=== PATIENT | male | born 1970 | race Caucasian/White ===

== ENCOUNTER → 2020-05-11 00:23 | Emergency (ER) | payer MEDICAID, OTHER ==
[~2020-05-11 00:23] MED LIST: GLIP2.5T2; GLU500
--- NOTE | 2020-05-11 00:23 | NUR ---
PT CALLEDE FOR TRIAGE, PT ELOPED.
== END | disposition left against medical advice (07) ==
LOC: MED 00:23
DX: M79.606 Pain in leg, unspecified (principal); Z53.21 Procedure and treatment not carried out due to patient leaving prior to being seen by health care provider

== ENCOUNTER 2021-01-23 18:59 | Emergency (ER) | payer MEDICARE, MEDICAID ==
[~2021-01-23] VITALS: Ht 180.3 cm; Wt 90.7 kg
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
[2021-01-23 19:15] VITALS: BP 155/81
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
--- NOTE | 2021-01-23 19:46 | NUR ---
CALLED [facility] AND REPORTED INCIDENT. PATIENT DOESNT WANT TO FILE A COMPLAINT.
--- NOTE | 2021-01-23 19:48 | NUR ---
ERMD AT BEDSIDE ASSESSING PATIENT
[2021-01-23 20:21] LABS: BASOPHILS # (AUTO) 0.1 K/uL (0.00-0.22); BASOPHILS % (AUTO) 1.1 % (0.0-2.0); EOSINOPHILS # (AUTO) 0.3 K/uL (0-0.4); EOSINOPHILS % (AUTO) 4.4 % (0.0-4.0); HEMATOCRIT 42.5 % (36-52); HEMOGLOBIN 14.3 g/dL (12.0-18.0); LYMPHOCYTES # (AUTO) 2.2 K/uL (2.0-11.5); LYMPHOCYTES % (AUTO) 31.7 % (20.5-51.1); MEAN CORPUSCULAR HEMOGLOBIN 30 pg (27-31); MEAN CORPUSCULAR HGB CONC 34 g/dL (33-37); MEAN CORPUSCULAR VOLUME 87.9 fL (80-94); MONOCYTES # (AUTO) 0.7 K/uL (0.8-1.0); MONOCYTES % (AUTO) 10.2 % (1.7-9.3); NEUTROPHILS # (AUTO) 3.7 K/uL (1.8-7.7); NEUTROPHILS % (AUTO) 52.6 % (42.2-75.2); PLATELET COUNT (AUTO) 307 K/uL (140-450); RED BLOOD CELL COUNT(AUTO) 4.83 MIL/uL (4.20-6.10); RED CELL DISTRIBUTION WIDTH 14.7 % (11.6-13.7)
[2021-01-23 20:29] LABS: ANION GAP 9.5 (8-16); CARBON DIOXIDE 30.4 mmol/L (21-32); CREATININE 1.1 mg/dL (0.6-1.3); POTASSIUM 3.9 mmol/L (3.5-5.1)
[2021-01-23 20:41] LABS: PROTHROMBIN TIME 9.6 secs (10.8-13.4)
[2021-01-23] MEDS ORDERED: SODI44SP20 NS (22:19)
[2021-01-23 22:26] VITALS: BP 135/81
--- NOTE | 2021-01-23 22:26 | NUR ---
Patient discharged with v/s stable. Written and verbal after care instructions given and explained. Patient alert, oriented and verbalized understanding of instructions. Ambulatory with steady gait. All questions addressed prior to discharge. ID band removed. Patient advised to follow up with PMD. Rx of SODIUM CHLORIDE NASAL SPRAY given. Patient educated on indication of medication including possible reaction and side effects. Opportunity to ask questions provided and answered.
[2021-01-23] MEDS ORDERED: METH750T5 PO (22:27)
[2021-01-23] MEDS ORDERED: IBUP-2213 PO (22:27)
== END 2021-01-23 22:26 | disposition home or self-care (01) ==
LOC: MED 18:59
DX: S02.2XXA Fracture of nasal bones, initial encounter for closed fracture (principal); S09.90XA Unspecified injury of head, initial encounter; E11.9 Type 2 diabetes mellitus without complications; I10 Essential (primary) hypertension; Y04.8XXA Assault by other bodily force, initial encounter; Y93.89 Activity, other specified; Y92.89 Other specified places as the place of occurrence of the external cause; Y99.8 Other external cause status
CPT/HCPCS: 36415; 70450; 70486; 71045; 72125; 80048; 85025; 85610; 85730; 86886; 86900; 86901; 99285

== ENCOUNTER 2023-09-27 23:43 | Emergency (ER) | payer OTHER, MEDICAID ==
[~2023-09-27 23:43] MED LIST changes: +APIX5TAB PO; +ERTA1VIA2 IV; +GABA300C PO; -GLIP2.5T2; -GLU500; +HYDR-4490 PO; +INSU-1163 SQ; +LISI5TAB18 PO; +METF-352 PO
== END 2023-09-28 | disposition left against medical advice (07) ==
LOC: MED 23:43
DX: Z53.21 Procedure and treatment not carried out due to patient leaving prior to being seen by health care provider (principal)

== ENCOUNTER 2023-09-28 17:02 | Inpatient (IN) | payer OTHER, MEDICAID ==
[~2023-09-28] VITALS: Ht 182.9 cm; Wt 93.4 kg
[2023-09-28 17:15] VITALS: BP 156/113; PULSE 120; RESP 20; TEMP 101.7; O2SAT 98
[2023-09-28] MEDS ORDERED: NACL 0.9% 2,500 ML IV ONE (17:50)
[2023-09-28] MEDS ORDERED: ACETAMINOPHEN EXTRA STRENGTH 500 MG TAB PO ONE (18:05)
[2023-09-28] MEDS ORDERED: MORPHINE SULFATE 10 MG/ML VIAL IVP STA (18:50)
[2023-09-28 18:53] LABS: BASOPHILS # (AUTO) 0.1 K/uL (0.00-0.22); BASOPHILS % (AUTO) 0.6 % (0.0-2.0); EOSINOPHILS # (AUTO) 0.2 K/uL (0-0.4); EOSINOPHILS % (AUTO) 2.1 % (0.0-4.0); HEMATOCRIT 32.4 % (36-52); HEMOGLOBIN 10.8 g/dL (12.0-18.0); LYMPHOCYTES # (AUTO) 1.7 K/uL (2.0-11.5); MEAN CORPUSCULAR HEMOGLOBIN 24 pg (27-31); MEAN CORPUSCULAR HGB CONC 33 g/dL (33-37); MEAN CORPUSCULAR VOLUME 73.6 fL (80-94); MONOCYTES % (AUTO) 8.2 % (1.7-9.3); NEUTROPHILS % (AUTO) 75.1 % (42.2-75.2); PLATELET COUNT (AUTO) 604 K/uL (140-450); RED CELL DISTRIBUTION WIDTH 16.7 % (11.6-13.7)
[2023-09-28] MEDS ORDERED: PIPERACILLIN/TAZOBACTAM 3.375 GM in DEXTROSE 5% 50 ML IV ONE (18:55)
[2023-09-28] MEDS ORDERED: VANCOMYCIN 1,000 MG in DEXTROSE 5% 250 ML IV ONE (18:55)
[2023-09-28 19:05] LABS: ALBUMIN 2.2 g/dL (3.4-5.0); ANION GAP 14.1 (8-16); CALCIUM 9.7 mg/dL (8.5-10.1); CARBON DIOXIDE 30.1 mmol/L (21-32); CREATININE 1.1 mg/dL (0.6-1.3); POTASSIUM 4.2 mmol/L (3.5-5.1); TOTAL BILIRUBIN 0.5 mg/dL (0.0-1.0); TOTAL PROTEIN, SERUM 9.1 g/dL (6.4-8.2)
[2023-09-28 19:15] LABS: LACTIC ACID 2.8 mmol/L (0.4-2.0)
[2023-09-28] MEDS ORDERED: PIPERACILLIN/TAZOBACTAM 3.375 GM VIAL IV ONE (20:02)
[2023-09-28] MEDS ORDERED: MORPHINE SULFATE 10 MG/ML VIAL ONE (20:03)
[2023-09-28] MEDS ORDERED: VANCOMYCIN 1,000 MG VIAL ONE (21:41)
[2023-09-28] MEDS ORDERED: DEXTROSE 50% 50 ML SYR IVP PRN (22:50)
[2023-09-28] MEDS ORDERED: HYDROcodone/APAP 5/325 MG 1 TAB TAB PO PRN (22:50)
[2023-09-28] MEDS ORDERED: ONDANSETRON 4 MG/2 ML VIAL IVP PRN (22:50)
[2023-09-28] MEDS ORDERED: ACETAMINOPHEN 325 MG TAB PO PRN (22:50)
[2023-09-29] MEDS: PIPERACILLIN/TAZOBACTAM 3.375 GM in DEXTROSE 5% 50 ML IV SCH ×3 (05:35→21:11)
[2023-09-29] MEDS ORDERED: PIPERACILLIN/TAZOBACTAM 3.375 GM VIAL IV ONE ×3 (05:35→21:04)
[2023-09-29] MEDS: NACL 0.9% 1,000 ML IV SCH ×2 (05:42→18:50)
[2023-09-29 06:22] LABS: BASOPHILS # (AUTO) 0.1 K/uL (0.00-0.22); BASOPHILS % (AUTO) 0.7 % (0.0-2.0); EOSINOPHILS # (AUTO) 0.3 K/uL (0-0.4); EOSINOPHILS % (AUTO) 4.3 % (0.0-4.0); HEMATOCRIT 29.4 % (36-52); HEMOGLOBIN 9.8 g/dL (12.0-18.0); LYMPHOCYTES # (AUTO) 1.2 K/uL (2.0-11.5); MEAN CORPUSCULAR HEMOGLOBIN 25 pg (27-31); MEAN CORPUSCULAR HGB CONC 34 g/dL (33-37); MEAN CORPUSCULAR VOLUME 73.3 fL (80-94); MONOCYTES # (AUTO) 0.7 K/uL (0.8-1.0); MONOCYTES % (AUTO) 8.6 % (1.7-9.3); NEUTROPHILS # (AUTO) 5.4 K/uL (1.8-7.7); NEUTROPHILS % (AUTO) 70.4 % (42.2-75.2); PLATELET COUNT (AUTO) 507 K/uL (140-450); RED BLOOD CELL COUNT(AUTO) 4.01 MIL/uL (4.20-6.10); RED CELL DISTRIBUTION WIDTH 16.7 % (11.6-13.7); WHITE BLOOD COUNT (AUTO) 7.7 K/uL (4.8-10.8)
[2023-09-29 06:37] LABS: ANION GAP 10.5 (8-16); CALCIUM 8.7 mg/dL (8.5-10.1); CARBON DIOXIDE 29.9 mmol/L (21-32); CREATININE 0.9 mg/dL (0.6-1.3); POTASSIUM 3.4 mmol/L (3.5-5.1)
[2023-09-29 07:33] VITALS: O2SAT 99
[2023-09-29 07:44] LABS: APPEARANCE,URINE CLEAR (CLEAR); BILIRUBIN,URINE NEGATIVE (NEGATIVE); BLOOD, URINE NEGATIVE (NEGATIVE); COLOR,URINE YELLOW (YELLOW); LEUKOCYTE ESTERASE ,URINE NEGATIVE (NEGATIVE); NITRITE, URINE NEGATIVE (NEGATIVE); PROTEIN,URINE 1+ (NEGATIVE); UGLUCOSE 3+ (NEGATIVE); UROBILINOGEN,URINE 0.2 EU/dL (0.2 - 1)
[2023-09-29] MEDS: BLOOD GLUCOSE MONITORING 1 DEV DEV FS SCH ×4 (07:52→20:51)
[2023-09-29] MEDS: INSULIN LISPRO SLIDING SCALE 100 UNITS/ML VIAL SUBQ PRN ×3 (08:02→20:54)
[2023-09-29 08:17] LABS: BACTERIA,URINE OCCASSIONAL /HPF (None Seen); RBC,URINE 0-5 /HPF (0-5); SQUAMOUS EPITHELIAL CELL,UR 0-3 (FEW) /LPF (0-3 (FEW)); WBC,URINE 0-5 /HPF (0-5)
[2023-09-29 08:27] LABS: BARBITURATE, URINE NEGATIVE ng/ml (NEG <=200); CANNABINOID, URINE POSITIVE ng/mL (NEG <=50)
[2023-09-29 08:28] LABS: AMPHETAMINE, URINE POSITIVE ng/ml (NEG <=1000); BENZODIAZEPINE, URINE NEGATIVE ng/mL (NEG <=200); COCAINE, URINE NEGATIVE ng/mL (NEG <=300); OPIATE, URINE POSITIVE ng/mL (NEG <=2000); PHENCYCLIDINE SCREEN,URINE POSITIVE ng/mL (NEG <=25)
[2023-09-29] MEDS ORDERED: POTASSIUM CHLORIDE 10 MEQ TABER PO SCH (08:30)
[2023-09-29] MEDS: lisinopriL 5 MG TAB PO SCH (09:22)
[2023-09-29] MEDS: GABAPENTIN 300 MG CAP PO SCH ×3 (09:22→18:01)
[2023-09-29] MEDS: APIXABAN 2.5 MG TAB PO SCH ×2 (09:23→21:01)
[2023-09-29 09:33] VITALS: O2SAT 99
[2023-09-29] MEDS: MORPHINE SULFATE 2 MG/ML SYR IVP PRN (13:39)
[2023-09-29 14:31] VITALS: O2SAT 99
[2023-09-29 15:29] VITALS: RESP 18; O2SAT 99
[2023-09-29 16:00] VITALS: BP 106/69; PULSE 81; RESP 20; TEMP 98.6; O2SAT 99
[2023-09-29 20:00] VITALS: BP 103/68; PULSE 84; RESP 18; TEMP 97.5; O2SAT 97
[2023-09-30 04:00] VITALS: BP 110/65; PULSE 81; RESP 18; TEMP 97.6; O2SAT 98
[2023-09-30] MEDS ORDERED: PIPERACILLIN/TAZOBACTAM 3.375 GM VIAL IV ONE (04:27)
[2023-09-30] MEDS: PIPERACILLIN/TAZOBACTAM 3.375 GM in DEXTROSE 5% 50 ML IV SCH ×3 (04:32→21:15)
[2023-09-30] MEDS: BLOOD GLUCOSE MONITORING 1 DEV DEV FS SCH ×4 (06:41→21:40)
[2023-09-30] MEDS: INSULIN LISPRO SLIDING SCALE 100 UNITS/ML VIAL SUBQ PRN ×4 (06:41→21:44)
[2023-09-30 07:22] LABS: BASOPHILS % (AUTO) 0.5 % (0.0-2.0); EOSINOPHILS # (AUTO) 0.3 K/uL (0-0.4); EOSINOPHILS % (AUTO) 5.1 % (0.0-4.0); HEMATOCRIT 32.5 % (36-52); HEMOGLOBIN 10.8 g/dL (12.0-18.0); LYMPHOCYTES # (AUTO) 1.8 K/uL (2.0-11.5); LYMPHOCYTES % (AUTO) 25.5 % (20.5-51.1); MEAN CORPUSCULAR HEMOGLOBIN 24 pg (27-31); MEAN CORPUSCULAR HGB CONC 33 g/dL (33-37); MEAN CORPUSCULAR VOLUME 73.8 fL (80-94); MONOCYTES # (AUTO) 0.6 K/uL (0.8-1.0); MONOCYTES % (AUTO) 8.7 % (1.7-9.3); NEUTROPHILS # (AUTO) 4.1 K/uL (1.8-7.7); NEUTROPHILS % (AUTO) 60.2 % (42.2-75.2); PLATELET COUNT (AUTO) 637 K/uL (140-450); RED BLOOD CELL COUNT(AUTO) 4.41 MIL/uL (4.20-6.10); RED CELL DISTRIBUTION WIDTH 17.1 % (11.6-13.7); WHITE BLOOD COUNT (AUTO) 6.9 K/uL (4.8-10.8)
[2023-09-30 07:33] LABS: ANION GAP 10.7 (8-16); CALCIUM 9.1 mg/dL (8.5-10.1); CARBON DIOXIDE 30.1 mmol/L (21-32); CREATININE 0.9 mg/dL (0.6-1.3); POTASSIUM 3.8 mmol/L (3.5-5.1)
[2023-09-30 08:00] VITALS: BP 128/77; PULSE 80; RESP 18; TEMP 97.5; O2SAT 97; O2SAT 98
[2023-09-30] MEDS: APIXABAN 2.5 MG TAB PO SCH ×2 (09:00→21:36)
[2023-09-30] MEDS: lisinopriL 5 MG TAB PO SCH (10:03)
[2023-09-30] MEDS: GABAPENTIN 300 MG CAP PO SCH ×3 (10:03→17:52)
[2023-09-30 12:00] VITALS: BP 126/79; PULSE 82; RESP 18; TEMP 97.6; O2SAT 97
[2023-09-30] MEDS: NACL 0.9% 1,000 ML IV SCH (14:50)
[2023-09-30 18:00] VITALS: BP 104/68; PULSE 97; RESP 21; TEMP 98.9; O2SAT 99
[2023-09-30] MEDS: MORPHINE SULFATE 2 MG/ML SYR IVP PRN (18:24)
[2023-09-30 20:00] VITALS: BP 104/60; PULSE 75; PULSE 87; RESP 18; RESP 20; TEMP 97.4; O2SAT 99
[2023-10-01 04:00] VITALS: BP 110/65; PULSE 89; RESP 20; TEMP 97.8; O2SAT 98
[2023-10-01] MEDS: PIPERACILLIN/TAZOBACTAM 3.375 GM in DEXTROSE 5% 50 ML IV SCH (05:20)
[2023-10-01 06:38] LABS: BASOPHILS # (AUTO) 0.1 K/uL (0.00-0.22); EOSINOPHILS # (AUTO) 0.4 K/uL (0-0.4); EOSINOPHILS % (AUTO) 3.5 % (0.0-4.0); HEMATOCRIT 33.3 % (36-52); HEMOGLOBIN 10.9 g/dL (12.0-18.0); LYMPHOCYTES # (AUTO) 1.9 K/uL (2.0-11.5); LYMPHOCYTES % (AUTO) 16.6 % (20.5-51.1); MEAN CORPUSCULAR HEMOGLOBIN 24 pg (27-31); MEAN CORPUSCULAR HGB CONC 33 g/dL (33-37); MEAN CORPUSCULAR VOLUME 73.8 fL (80-94); MONOCYTES # (AUTO) 0.7 K/uL (0.8-1.0); MONOCYTES % (AUTO) 6.4 % (1.7-9.3); NEUTROPHILS # (AUTO) 8.3 K/uL (1.8-7.7); NEUTROPHILS % (AUTO) 72.5 % (42.2-75.2); PLATELET COUNT (AUTO) 685 K/uL (140-450); RED BLOOD CELL COUNT(AUTO) 4.51 MIL/uL (4.20-6.10); RED CELL DISTRIBUTION WIDTH 16.9 % (11.6-13.7); WHITE BLOOD COUNT (AUTO) 11.4 K/uL (4.8-10.8)
[2023-10-01] MEDS: INSULIN LISPRO SLIDING SCALE 100 UNITS/ML VIAL SUBQ PRN (06:42)
[2023-10-01] MEDS: BLOOD GLUCOSE MONITORING 1 DEV DEV FS SCH (06:42)
[2023-10-01 06:53] LABS: CALCIUM 8.7 mg/dL (8.5-10.1); CARBON DIOXIDE 30.2 mmol/L (21-32); CREATININE 0.9 mg/dL (0.6-1.3); POTASSIUM 4.2 mmol/L (3.5-5.1)
[2023-10-01 08:00] VITALS: PULSE 72; RESP 18; TEMP 98.8; O2SAT 95
[2023-10-01] MEDS: GABAPENTIN 300 MG CAP PO SCH (10:46)
[2023-10-01] MEDS: MORPHINE SULFATE 2 MG/ML SYR IVP PRN (10:46)
[2023-10-01] MEDS: APIXABAN 2.5 MG TAB PO SCH (10:48)
[2023-10-01] MEDS: lisinopriL 5 MG TAB PO SCH (10:49)
== END 2023-10-01 11:47 | disposition left against medical advice (07) | DRG 602 ==
LOC: MED 17:02 → MTU 22:47
PROVIDERS: ADMIT Family Medicine; ATTEND Family Medicine
DX: L03.115 Cellulitis of right lower limb (principal); E43 Unspecified severe protein-calorie malnutrition; M86.8X7 Other osteomyelitis, ankle and foot; L97.516 Non-pressure chronic ulcer of other part of right foot with bone involvement without evidence of necrosis; E11.69 Type 2 diabetes mellitus with other specified complication; E11.621 Type 2 diabetes mellitus with foot ulcer; Z53.21 Procedure and treatment not carried out due to patient leaving prior to being seen by health care provider; Z79.01 Long term (current) use of anticoagulants; Z79.4 Long term (current) use of insulin; Z79.899 Other long term (current) drug therapy; Z79.84 Long term (current) use of oral hypoglycemic drugs; Z68.27 Body mass index [BMI] 27.0-27.9, adult
CPT/HCPCS: 36415; 73590; 73630; 73702; 80048; 80053; 80305; 81001; 82948; 83605; 85025; 87040; 87070; 87075; 87081; 87186; 96365; 96368; 99285; J2270; J2405; J2543; J3370; J7060; Q9967

== ENCOUNTER 2024-03-20 03:31 | Inpatient (IN) | payer OTHER, MEDICAID ==
[~2024-03-20] VITALS: Ht 172.7 cm; Wt 90.7 kg
[2024-03-20] VITALS (8 sets, daily range): BP systolic 105–115; BP diastolic 58–69; PULSE 73–95; RESP 14–18; TEMP 97.3–97.8; O2SAT 95–99
[2024-03-20] MEDS ORDERED: VANCOMYCIN 1,000 MG VIAL ONE (04:51)
[2024-03-20] MEDS ORDERED: PIPERACILLIN/TAZOBACTAM 3.375 GM VIAL IV ONE (04:51)
[2024-03-20] MEDS: ACETAMINOPHEN EXTRA STRENGTH 500 MG TAB PO ONE (05:11)
[2024-03-20] MEDS: NACL 0.9% 1,000 ML IV SCH (05:16)
[2024-03-20] MEDS: KETOROLAC 30 MG/ML VIAL IVP ONE (05:19)
[2024-03-20] MEDS: PIPERACILLIN/TAZOBACTAM 3.375 GM in DEXTROSE 5% 50 ML IV ONE (05:22)
[2024-03-20 05:36] LABS: BASOPHILS # (AUTO) 0.1 K/uL (0.00-0.22); BASOPHILS % (AUTO) 1.3 % (0.0-2.0); EOSINOPHILS # (AUTO) 0.4 K/uL (0-0.4); EOSINOPHILS % (AUTO) 4.5 % (0.0-4.0); HEMATOCRIT 30.7 % (36-52); HEMOGLOBIN 10.1 g/dL (12.0-18.0); LYMPHOCYTES # (AUTO) 1.6 K/uL (2.0-11.5); LYMPHOCYTES % (AUTO) 20.6 % (20.5-51.1); MEAN CORPUSCULAR HEMOGLOBIN 24 pg (27-31); MEAN CORPUSCULAR HGB CONC 33 g/dL (33-37); MEAN CORPUSCULAR VOLUME 73.1 fL (80-94); MONOCYTES # (AUTO) 0.8 K/uL (0.8-1.0); MONOCYTES % (AUTO) 10.6 % (1.7-9.3); PLATELET COUNT (AUTO) 352 K/uL (140-450); RED CELL DISTRIBUTION WIDTH 19.6 % (11.6-13.7); WHITE BLOOD COUNT (AUTO) 7.9 K/uL (4.8-10.8)
[2024-03-20] MEDS: VANCOMYCIN 1,000 MG in DEXTROSE 5% 250 ML IV ONE (05:50)
[2024-03-20 06:02] LABS: INR 0.9 (0.8-1.2); PARTIAL THROMBOPLASTIN TIME 32.3 secs (22-35.6); PROTHROMBIN TIME 9.4 secs (10.8-13.4)
[2024-03-20] MEDS ORDERED: VANCOMYCIN PER PHARMACY MC PRN (06:05)
[2024-03-20] MEDS ORDERED: ACETAMINOPHEN 325 MG TAB PO PRN (06:05)
[2024-03-20 06:09] LABS: ALANINE AMINOTRANSFERASE 15 U/L (12-78); ALKALINE PHOSPHATASE 101 U/L (50-136); ASPARTATE AMINOTRANSFERASE 4 U/L (15-37); BILIRUBIN,DIRECT 0.1 mg/dL (0.0-0.3); TOTAL BILIRUBIN 0.4 mg/dL (0.0-1.0); TOTAL PROTEIN, SERUM 7.7 g/dL (6.4-8.2)
[2024-03-20 06:11] LABS: LACTIC ACID 2.1 mmol/L (0.4-2.0)
[2024-03-20] MEDS: ONDANSETRON 4 MG/2 ML VIAL IVP ONE (06:15)
[2024-03-20] MEDS: MORPHINE SULFATE 4 MG/ML SYR IVP ONE (06:16)
[2024-03-20 06:34] LABS: ANION GAP 14.9 (8-16); CALCIUM 8.3 mg/dL (8.5-10.1); CARBON DIOXIDE 25.4 mmol/L (21-32); POTASSIUM 4.3 mmol/L (3.5-5.1)
[2024-03-20] MEDS: CEFEPIME 2,000 MG in DEXTROSE 5% 100 ML IV SCH (09:27)
[2024-03-20] MEDS: ENOXAPARIN 40 MG/0.4 ML SYR SUBQ SCH (09:34)
[2024-03-20] MEDS ORDERED: DEXTROSE 50% 50 ML SYR IVP PRN (12:10)
[2024-03-20] MEDS: INSULIN LISPRO SLIDING SCALE 100 UNITS/ML VIAL SUBQ PRN (12:12)
[2024-03-20] MEDS: GABAPENTIN 300 MG CAP PO SCH (12:13)
[2024-03-20] MEDS: lisinopriL 5 MG TAB PO SCH (12:16)
[2024-03-20] MEDS: VANCOMYCIN 1.25GM PREMIX 250 ML IV SCH (15:18)
[2024-03-20] MEDS: MORPHINE SULFATE 2 MG/ML SYR IVP PRN (16:41)
[2024-03-20] MEDS: BLOOD GLUCOSE MONITORING 1 DEV DEV FS SCH (16:44)
[2024-03-20] MEDS: APIXABAN 2.5 MG TAB PO SCH (21:21)
[2024-03-20] MEDS: INSULIN LANTUS 100 UNITS/ML 10 ML VIAL SUBQ SCH (21:33)
[2024-03-21] MEDS: HYDROcodone/APAP 5/325 MG 1 TAB TAB PO PRN (01:03)
[2024-03-21 04:00] VITALS: BP 105/57; PULSE 75; RESP 18; TEMP 98.1; O2SAT 99
[2024-03-21 05:46] LABS: BASOPHILS # (AUTO) 0.1 K/uL (0.00-0.22); BASOPHILS % (AUTO) 1.9 % (0.0-2.0); EOSINOPHILS # (AUTO) 0.5 K/uL (0-0.4); EOSINOPHILS % (AUTO) 8.9 % (0.0-4.0); HEMOGLOBIN 9.6 g/dL (12.0-18.0); LYMPHOCYTES # (AUTO) 1.9 K/uL (2.0-11.5); LYMPHOCYTES % (AUTO) 34.5 % (20.5-51.1); MEAN CORPUSCULAR HEMOGLOBIN 24 pg (27-31); MEAN CORPUSCULAR HGB CONC 32 g/dL (33-37); MEAN CORPUSCULAR VOLUME 73.2 fL (80-94); MONOCYTES # (AUTO) 0.5 K/uL (0.8-1.0); MONOCYTES % (AUTO) 9.4 % (1.7-9.3); NEUTROPHILS # (AUTO) 2.4 K/uL (1.8-7.7); NEUTROPHILS % (AUTO) 45.3 % (42.2-75.2); PLATELET COUNT (AUTO) 309 K/uL (140-450); RED CELL DISTRIBUTION WIDTH 19.3 % (11.6-13.7); WHITE BLOOD COUNT (AUTO) 5.4 K/uL (4.8-10.8)
[2024-03-21 06:29] LABS: ALBUMIN 2.5 g/dL (3.4-5.0); ANION GAP 11.4 (8-16); CARBON DIOXIDE 26.2 mmol/L (21-32); CREATININE 0.8 mg/dL (0.6-1.3); MAGNESIUM 1.9 mg/dL (1.8-2.4); PHOSPHORUS 3.9 mg/dL (2.5-4.9); POTASSIUM 4.6 mmol/L (3.5-5.1); TOTAL BILIRUBIN 0.4 mg/dL (0.0-1.0); TOTAL PROTEIN, SERUM 6.8 g/dL (6.4-8.2)
[2024-03-21 08:00] VITALS: BP 113/59; PULSE 67; RESP 18; TEMP 97.5; O2SAT 99
[2024-03-21] MEDS: PANTOPRAZOLE 40 MG INJ VIAL IVP SCH (08:52)
[2024-03-21] MEDS ORDERED: GABAPENTIN 100 MG CAP PO SCH (09:00)
[2024-03-21] MEDS ORDERED: PANTOPRAZOLE 40 MG INJ VIAL IVP SCH (09:00)
[2024-03-21 12:00] VITALS: BP 113/59; PULSE 67; RESP 18; TEMP 97.5; O2SAT 99
== END 2024-03-21 16:10 | disposition home health service (06) | DRG 638 ==
LOC: MED 03:31 → MTU 06:10 → MMU 06:53
PROVIDERS: ADMIT Student in an Organized Health Care Education/Training Program; ATTEND Student in an Organized Health Care Education/Training Program
PROC: 02HV33Z Insertion of Infusion Device into Superior Vena Cava, Percutaneous Approach (ICD-10-PCS; principal; 2024-03-21)
PROC: B548ZZA Ultrasonography of Superior Vena Cava, Guidance (ICD-10-PCS; 2024-03-21)
DX: E11.69 Type 2 diabetes mellitus with other specified complication (principal); L03.115 Cellulitis of right lower limb; M86.8X7 Other osteomyelitis, ankle and foot; E11.621 Type 2 diabetes mellitus with foot ulcer; I10 Essential (primary) hypertension; E11.610 Type 2 diabetes mellitus with diabetic neuropathic arthropathy; Z79.899 Other long term (current) drug therapy
CPT/HCPCS: 36415; 71045; 73590; 73630; 80048; 80053; 80076; 82948; 83605; 83735; 84100; 84484; 85025; 85610; 85730; 87040; 87081; 93005; 96365; 96367; 96375; 99285; C9113; J0692; J1650; J1815; J1885; J2270; J2405; J2543; J3370; J3372; J7060; Q0092

== ENCOUNTER 2024-06-27 18:16 | Emergency (ER) | payer OTHER, MEDICAID ==
[~2024-06-27] VITALS: Ht 182.9 cm; Wt 89.8 kg
[2024-06-27 18:30] VITALS: BP 124/60; PULSE 86; RESP 18; TEMP 98; O2SAT 99
[2024-06-27 19:15] VITALS: BP 124/60; PULSE 86; RESP 18; TEMP 98; O2SAT 99
[2024-06-27] MEDS ORDERED: PIPERACILLIN/TAZOBACTAM 3.375 GM VIAL IV ONE (20:25)
[2024-06-27 20:39] LABS: BASOPHILS # (AUTO) 0.2 K/uL (0.00-0.22); BASOPHILS % (AUTO) 2.8 % (0.0-2.0); EOSINOPHILS # (AUTO) 0.4 K/uL (0-0.4); EOSINOPHILS % (AUTO) 5.6 % (0.0-4.0); HEMOGLOBIN 9.2 g/dL (12.0-18.0); LYMPHOCYTES # (AUTO) 1.9 K/uL (2.0-11.5); LYMPHOCYTES % (AUTO) 30.3 % (20.5-51.1); MEAN CORPUSCULAR HEMOGLOBIN 23 pg (27-31); MEAN CORPUSCULAR HGB CONC 32 g/dL (33-37); MEAN CORPUSCULAR VOLUME 72.8 fL (80-94); MONOCYTES # (AUTO) 0.4 K/uL (0.8-1.0); MONOCYTES % (AUTO) 5.9 % (1.7-9.3); NEUTROPHILS # (AUTO) 3.5 K/uL (1.8-7.7); NEUTROPHILS % (AUTO) 55.4 % (42.2-75.2); PLATELET COUNT (AUTO) 546 K/uL (140-450); RED BLOOD CELL COUNT(AUTO) 3.99 MIL/uL (4.20-6.10); RED CELL DISTRIBUTION WIDTH 18.3 % (11.6-13.7); WHITE BLOOD COUNT (AUTO) 6.4 K/uL (4.8-10.8)
[2024-06-27] MEDS: PIPERACILLIN/TAZOBACTAM 3.375 GM in DEXTROSE 5% 50 ML IV ONE (20:48)
[2024-06-27 20:53] LABS: ANION GAP 14.1 (8-16); CALCIUM 8.4 mg/dL (8.5-10.1); CARBON DIOXIDE 28.2 mmol/L (21-32); CREATININE 0.8 mg/dL (0.6-1.3); POTASSIUM 4.3 mmol/L (3.5-5.1)
== END 2024-06-27 21:30 | disposition home or self-care (01) ==
LOC: MED 18:16
DX: S91.301A Unspecified open wound, right foot, initial encounter (principal); E11.9 Type 2 diabetes mellitus without complications; I10 Essential (primary) hypertension; Z79.899 Other long term (current) drug therapy; Z79.4 Long term (current) use of insulin; Z79.01 Long term (current) use of anticoagulants; X58.XXXA Exposure to other specified factors, initial encounter; Y92.89 Other specified places as the place of occurrence of the external cause; Y93.89 Activity, other specified; Y99.8 Other external cause status
CPT/HCPCS: 36415; 80048; 85025; 96365; 99284; J2543

== ENCOUNTER 2024-06-28 11:39 | Emergency (ER) | payer OTHER, MEDICAID ==
[~2024-06-28] VITALS: Ht 182.9 cm; Wt 90.7 kg
[2024-06-28 11:55] VITALS: BP 134/78; PULSE 98; RESP 16; TEMP 98.2; O2SAT 99
== END 2024-06-28 16:03 | disposition home or self-care (01) ==
LOC: MED 11:39
DX: Z45.2 Encounter for adjustment and management of vascular access device (principal); E11.9 Type 2 diabetes mellitus without complications; I10 Essential (primary) hypertension; Z79.899 Other long term (current) drug therapy; Z79.4 Long term (current) use of insulin; Z79.01 Long term (current) use of anticoagulants
CPT/HCPCS: 36569; 71045; 99285; Q0092; C1751